=== PATIENT | male | born 1955 | race Caucasian/White ===

== ENCOUNTER 2023-12-05 11:00 | Outpatient (CLI) | payer BC, OTHER ==
--- NOTE | 2023-12-05 14:12 | XRAY Report ---
PROCEDURE: Chest 2V INDICATIONS: ACUTE COUGH TECHNIQUE: 2 views of the chest were acquired. COMPARISON: None. FINDINGS: Surgical changes and devices: None. Lungs and pleura: Streaky opacities in the right base. Mediastinum: Mediastinal contours appear normal. Heart size is normal. Bones and chest wall: No suspicious bony lesions. Overlying soft tissues appear unremarkable. IMPRESSION: Streaky right basilar opacities possibly atelectasis. Developing pneumonia cannot be definitively exc luded. Reviewed by: Arabella Booker MD on 12/05/2023 2:11 PM PDT Approved by: Arabella Booker MD on 12/05/2023 2:11 PM PDT Station ID: [id number]
== END 2023-12-05 11:15 | disposition home or self-care (01) ==
LOC: DI.N 11:00
PROVIDERS: ATTEND Physician Assistant Medical
DX: R05.1 Acute cough (principal); R91.8 Other nonspecific abnormal finding of lung field